=== PATIENT | male | born 1970 | race Caucasian/White ===

== ENCOUNTER 2025-04-14 21:27 | Emergency (ER) | payer OTHER ==
[~2025-04-14] VITALS: Ht 180.3 cm; Wt 93.0 kg
[2025-04-14] MEDS ORDERED: IOHEXOL-300 100 ML VIAL IV ONE (22:50)
[2025-04-14] MEDS ORDERED: IV NS 0.9% 250 ML IV ONE (22:50)
[2025-04-14] MEDS ORDERED: CT SWABBABLE VALVE TRANS SET 1 EA INFUS.SET MC ONE (22:51)
[2025-04-14] MEDS ORDERED: ONDANSETRON HCL/PF 4 MG/2 ML VIAL ONE (22:57)
[2025-04-14] MEDS ORDERED: MORPHINE SULFATE INJ 4 MG/ML DISP.SYRIN ONE (22:57)
[2025-04-14 23:02] LABS: PLATELET COUNT (AUTO) 156 K/uL (150-450); RED BLOOD CELL COUNT(AUTO) 4.58 MIL/uL (4.5-6.0); RED CELL DISTRIBUTION WIDTH 13.0 % (11.5-15.0); WHITE BLOOD COUNT (AUTO) 8.9 K/uL (4.3-11.0)
[2025-04-14] MEDS: IV NS 0.9% 500 ML BAG IV ONE (23:04)
[2025-04-14] MEDS: MORPHINE SULFATE INJ 2 MG/ML DISP.SYRIN IV ONE (23:05)
[2025-04-14] MEDS: ONDANSETRON HCL/PF 4 MG/2 ML VIAL IVP ONE (23:05)
[2025-04-14 23:11] LABS: CALCIUM, SERUM 9.6 mg/dL (8.5-10.1); CREATININE 1.3 mg/dL (0.6-1.3); SODIUM SERUM 139.0 mmol/L (136-145); UREA NITROGEN, BLOOD 28.0 mg/dL (7-18)
[2025-04-14 23:15] LABS: INR 0.9 (0.91-1.10)
[2025-04-14 23:20] LABS: ASPARTATE AMINOTRANSFERASE 30.0 U/L (15-37); TOTAL PROTEIN, SERUM 7.3 g/dL (6.4-8.2)
[2025-04-14] MEDS: IV NS 0.9% 1,000 ML BAG IV ONE ×2 (23:39)
[2025-04-15 00:22] LABS: APPEARANCE,URINE CLEAR (CLEAR); BLOOD, URINE NEGATIVE Ery/uL (NEGATIVE); LEUKOCYTE ESTERASE ,URINE NEGATIVE (NEGATIVE); NITRITE, URINE NEGATIVE (NEGATIVE); UGLUCOSE 3+ mg/dL (NEGATIVE)
[2025-04-15] MEDS ORDERED: IBUP-1490 PO (00:28)
[2025-04-15 00:32] LABS: ADD URINE CULTURE NO; SQUAMOUS EPITHELIAL CELL,UR Few /HPF (None Seen)
[2025-04-15 01:06] VITALS: BP 126/87; TEMP 98; O2SAT 95
== END 2025-04-15 01:08 | disposition home or self-care (01) ==
LOC: ER 21:34
DX: S40.021A Contusion of right upper arm, initial encounter (principal); S20.219A Contusion of unspecified front wall of thorax, initial encounter; S20.229A Contusion of unspecified back wall of thorax, initial encounter; M25.551 Pain in right hip; E11.65 Type 2 diabetes mellitus with hyperglycemia; L42 Pityriasis rosea; W11.XXXA Fall on and from ladder, initial encounter; Y93.89 Activity, other specified; Y92.89 Other specified places as the place of occurrence of the external cause; Y99.8 Other external cause status
CPT/HCPCS: 99285; 71260; 96374; 96361; 96375; 93005; 74177; 85025; 80048; 80076; 81001; 36415; 85730; J2270; J2405; J7030 ×2; J7050; J7040; Q9967